=== PATIENT | male | born 1970 | race Caucasian/White ===

== ENCOUNTER 2018-07-14 08:29 | Emergency (ER) | payer BC ==
[~2018-07-14] VITALS: Ht 177.8 cm; Wt 83.9 kg
[~2018-07-14 08:29] MED LIST: ACETAMINOPHEN-1 EAC1 PO; AMITRIPTYLINE H10 M1 PO; AZITHROMYCIN 2250 MG PO; CLARITIN-D 121 EACH PO; FLOXIN OTI0.3 %/5 M1 OT; IBUPROFEN 800800 M1 PO; NEURONTIN600 MG PO; NOHOMEMEDICATIONS; NORCO 5-325 TA1 EACH PO; NORVASC 2.5 MG2.5 M1 PO; OMEPRAZOLE40 MG PO; ULTRAM 50MG TAB50 MG PO
[2018-07-14] MEDS ORDERED: AMLODIPINE-OLM1 EAC1 PO (08:40)
[2018-07-14 09:09] LABS: ABSOLUTE BASOPHILS 0.1 thou/uL (0.0-0.2); ABSOLUTE EOSINOPHILS 0.1 thou/uL (0.0-0.7); ABSOLUTE LYMPHOCYTES 1.6 thou/uL (0.8-5.3); ABSOLUTE MONOCYTES 0.7 thou/uL (0.0-1.2); ABSOLUTE NEUTROPHILS 6.5 thou/uL (1.6-8.1); BASOPHILS 0.6 %; EOSINOPHILS 1.1 %; HEMATOCRIT 46.9 % (42.0-52.0); LYMPHOCYTES 18.3 %; MCH 29.5 pg (26.0-34.0); MCHC 34.2 g/dL (28.0-37.0); MCV 86.3 fL (80.0-100.0); MONOCYTES 7.2 %; MPV 7.6 fl. (7.2-11.1); NUCLEATED RBCS 0 /100WBC; PLATELET COUNT* 250 thou/uL (150-400); POLYS 72.8 %; RBC 5.43 mil/uL (4.50-6.00); RDW-CV 14.2 % (10.5-14.5)
[2018-07-14 09:24] LABS: ANION GAP 10 mmol/L (7-16); BUN 23 mg/dL (7-18); CALCIUM 8.8 mg/dL (8.5-10.1); CHLORIDE 100 mmol/L (98-107); CO2 25 mmol/L (21-32); GLUCOSE 129 mg/dL (70-99); POTASSIUM 3.8 mmol/L (3.5-5.1); PROTIME 10.7 Seconds (9.20-11.50); SODIUM 135 mmol/L (136-145)
[2018-07-14 09:34] LABS: ALBUMIN 4.2 g/dL (3.4-5.0); ALKALINE PHOSPHATASE 96 U/L (46-116); LIPASE 216 U/L (73-393); NT-PRO BRAIN NAT PEPTIDE 16 pg/mL (<300); SGOT 47 U/L (15-37); SGPT 84 U/L (30-65); TOTAL BILIRUBIN 0.9 mg/dL (<0.1-1.0); TOTAL PROTEIN 7.9 g/dL (6.4-8.2); TROPONIN-I LEVEL <0.06 ng/mL (<0.06)
[2018-07-14 12:56] VITALS: BP 131/69
--- NOTE | 2018-07-15 15:35 | EKG ---
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
== END 2018-07-14 12:57 | disposition home or self-care (01) ==
LOC: M.ERS 08:29
PROVIDERS: Emergency Medicine
DX: S06.0X0A Concussion without loss of consciousness, initial encounter (principal); R55 Syncope and collapse; M54.2 Cervicalgia; I10 Essential (primary) hypertension; K21.9 Gastro-esophageal reflux disease without esophagitis; F17.210 Nicotine dependence, cigarettes, uncomplicated; Z98.890 Other specified postprocedural states; W18.39XA Other fall on same level, initial encounter; Y93.89 Activity, other specified; Y92.89 Other specified places as the place of occurrence of the external cause; Y99.8 Other external cause status